=== PATIENT | male | born 1955 | race Caucasian/White ===

== ENCOUNTER → 2018-06-29 | Outpatient (CLI) | payer OTHER | LOC: BMCIMAGING 10:58 | PROVIDERS: ATTEND Emergency Medicine | DX: M54.2 Cervicalgia (principal); M48.02 Spinal stenosis, cervical region ==

== ENCOUNTER → 2018-07-15 | Outpatient (CLI) | payer OTHER | DX: R20.2 Paresthesia of skin (principal); M48.02 Spinal stenosis, cervical region ==

== ENCOUNTER → 2018-08-06 | Outpatient (CLI) | payer OTHER | LOC: FIMAGING 05:57 | PROVIDERS: ATTEND Neurological Surgery | DX: M50.11 Cervical disc disorder with radiculopathy, high cervical region (principal); M50.13 Cervical disc disorder with radiculopathy, cervicothoracic region ==

== ENCOUNTER 2018-08-20 05:07 | Day surgery (SDC) | payer OTHER ==
[2018-08-20] MEDS ORDERED: LR 1,000 ML IV ONE (05:41)
[2018-08-20] MEDS ORDERED: LIDOCAINE 1% 2 ML INJ ID PRN (05:41)
[2018-08-20] MEDS ORDERED: ceFAZolin 2 GM/DEXTROSE 100 ML IV ONE (06:47)
[2018-08-20] MEDS ORDERED: ACETAMINOPHEN 500 MG TAB PO ONE (06:47)
[2018-08-20] MEDS ORDERED: MIDAZOLAM 2 MG/2 ML VIAL IVP ONE (06:51)
--- NOTE | 2018-08-20 06:51 | PDANEPAE ---
ANE History of Present Illness here for cerv athroplasty ANE Past Medical History - Cardiovascular History Hx Hypertension: Yes Hx Arrhythmias: No Hx Chest Pain: No Hx Coronary Artery / Peripheral Vascular Disease: No Hx CHF / Valvular Disease: No Hx Palpitations: No - Pulmonary History Hx COPD: No Hx Asthma/Reactive Airway Disease: No Hx Recent Upper Respiratory Infection: No Hx Oxygen in Use at Home: No Hx Sleep Apnea: No Sleep Apnea Screening Result - Last Documented: Positive Pulmonary History Comment: SANDEEP triggers - Neurologic History Hx Cerebrovascular Accident: No Hx Seizures: No Hx Dementia: No Neurologic History Comment: having c-spine surgery for numbness in right index finger, neck pain - Endocrine History Hx Diabetes: No - Renal History Hx Renal Disorders: No - Liver History Hx Hepatic Disorders: No - Neurological & Psychiatric Hx Hx Neurological and Psychiatric Disorders: Yes Neurological / Psychiatric History Comment: depression - Cancer History Hx Cancer: No - Congenital Disorder History Hx Congenital Disorders: No - GI History Hx Gastrointestinal Disorders: No - Other Health History Other Health History: wears glasses - Chronic Pain History Chronic Pain: No - Surgical History Prior Surgeries: tendon repair rightindex finger. 4 different surgeries on right fingers. cholecystectomy. tonsillectomy as a child ANE Review of Systems Review of systems is: negative Review of Systems: - Exercise capacity Exercise capacity: >=4 METS METS (RN): 4 METS ANE Patient History - Allergies Allergies/Adverse Reactions: No Known Allergies Allergy (Verified 08/06/18 15:45) - Home Medications Home medications: home medication list seen and reviewed Home Medications: Adult One Daily Multivit Tab 08/06/18 [Last Taken 08/13/18] Fish Oil Gregory-3 Softgel 08/06/18 [Last Taken 08/13/18] Glucosamine Chondroitin Caplet 08/06/18 [Last Taken 08/13/18] Lisinopril 08/06/18 [Last Taken 08/19/18 12:00] Sertraline HCl 08/06/18 [Last Taken 08/19/18 12:00] Vitamin B-12 08/06/18 [Last Taken 08/13/18] - NPO status NPO Status: no food or drink >8 hours NPO Since - Liquids (Date): 08/19/18 NPO Since - Liquids (Time): 04:25 NPO Since - Solids (Date): 08/19/18 NPO Since - Solids (Time): 18:30 - Anes Hx Anes Hx: no prior problems - Smoking Hx Smoking Status: Former smoker - Family Anes Hx Family Hx Anesthesia Complications: none ANE Labs/Vital Signs - Vital Signs Vital Signs: reviewed preoperatively; see RN documention for details Blood Pressure: 135/92 Heart Rate: 65 Respiratory Rate: 18 O2 Sat (%): 96 Height: 172.72 cm Weight: 79.379 kg ANE Physical Exam - Airway Neck exam: FROM Mallampati Score: Class 2 - Pulmonary Pulmonary: no respiratory distress - Cardiovascular Cardiovascular: regular rate and rhythym - ASA Status ASA Status: II ANE Anesthesia Plan Anesthesia Plan: general endotracheal anesthesia
[2018-08-20] MEDS ORDERED: NS 500 ML IV PRN (06:52)
[2018-08-20] MEDS ORDERED: HYDROCODONE/APAP 5/325 TAB PO PRN (06:52)
[2018-08-20] MEDS ORDERED: ONDANSETRON 4 MG/2 ML VIAL IVP PRN ×2 (06:52→09:53)
[2018-08-20] MEDS ORDERED: NALOXONE HCL 0.4 MG/ML INJ IVP PRN (06:52)
[2018-08-20] MEDS ORDERED: ALBUTEROL 3 ML DEYVIAL IH PRN (06:52)
[2018-08-20] MEDS ORDERED: HYDROmorphONE/DILAUDID 1 MG/ML INJ IVP PRN (06:52)
[2018-08-20] MEDS ORDERED: oxyCODONE IR 5 MG TAB PO PRN ×2 (06:52→09:56)
[2018-08-20] MEDS ORDERED: DEXAMETHASONE 4 MG/ML VIAL IVP PRN (06:52)
[2018-08-20] MEDS ORDERED: CHLORHEXIDINE GLUC HIBICLENS 118 ML BTL TP ONE (06:57)
[2018-08-20] MEDS ORDERED: BACITRACIN 50,000 UNITS/10 ML SYR IRR ONE (06:57)
[2018-08-20] MEDS ORDERED: THROMBIN (BOVINE) 20,000 UNIT VIAL TP ONE (06:57)
[2018-08-20] MEDS ORDERED: fentaNYL 100 MCG/2 ML INJ ONE ×3 (06:58→10:05)
--- NOTE | 2018-08-20 06:58 | PDHPUP ---
History & Physical Update H&P update statement: This history and physical update is based on an assessment of the patient which was completed after admission or registration (within 24 hours), but prior to the surgery/procedure. H&P update: H&P reviewed & patient examined, no change in patient's condition since H&P completed
[2018-08-20] MEDS ORDERED: PROPOFOL/EMULSION 500 MG/50 ML BOTTLE IV ONE (07:00)
[2018-08-20] MEDS ORDERED: ROCURONIUM 50 MG/5 ML VIAL ONE (07:00)
[2018-08-20] MEDS ORDERED: AVITENE POWDER 1 GM JAR TP ONE (07:11)
[2018-08-20] MEDS ORDERED: DEXAMETHASONE 4 MG/ML VIAL ONE (07:34)
[2018-08-20] MEDS ORDERED: ONDANSETRON 4 MG/2 ML VIAL ONE (07:34)
[2018-08-20] MEDS ORDERED: BUPIVACAINE/EPI 0.5% 30 ML SDV ONE (07:37)
[2018-08-20] MEDS ORDERED: PROPOFOL 200 MG/20 ML VIAL ONE (08:56)
[2018-08-20] MEDS ORDERED: ONDANSETRON DISINTEGRATING 4 MG TAB PO PRN (09:53)
[2018-08-20] MEDS ORDERED: KETOROLAC 30 MG/1 ML SDV IVP ONE (09:54)
[2018-08-20] MEDS ORDERED: CYCLOBENZAPRINE 10 MG TAB PO PRN (09:55)
[2018-08-20] MEDS ORDERED: METHOCARBAMOL 1,000 MG in NS 50 ML IVP PRN (10:01)
[2018-08-20] MEDS: fentaNYL 100 MCG/2 ML INJ IVP PRN ×3 (10:06→10:34)
[2018-08-20] MEDS ORDERED: oxyCODONE IR 5 MG TAB ONE (10:46)
[2018-08-20] MEDS ORDERED: KETOROLAC 30 MG/1 ML SDV ONE (11:34)
[2018-08-20 13:58] VITALS: BP 136/93
--- NOTE | 2018-08-20 14:16 | POSTANESTH ---
Post Anesthetic Evaluation Cardiovascular Status: Normal, Stable Respiratory Status: Normal, Stable Level of Consciousness/Mental Status: Can Participate in Eval Pain Control: Adequate, Prn Tx Ordered Nausea/Vomiting Control: Adequate, Prn Tx Ordered Complications Possibly Related to Anesthesia: None Noted
--- NOTE | 2018-08-21 06:46 | GOP ---
DATE OF OPERATION: 08/20/2018 SURGEON: Ladarius Prado MD NEUROSURGEON: Ladarius Prado MD. RESEARCH ATTORNEY: RAJESH Mendez. PREOPERATIVE DIAGNOSIS: Acute soft disk herniation at C6-7 with right C7 radiculopathy. POSTOPERATIVE DIAGNOSIS: Acute soft disk herniation at C6-7 with right C7 radiculopathy. PROCEDURE PERFORMED: 1. C6-7 disk arthroplasty including complete diskectomy. 2. Use of the operative microscope. 3. Intraoperative neurophysiologic monitoring, including somatosensory-evoked potentials, motor-evok ed potentials, and electromyography. FINDINGS: SPECIMENS: There were no specimens. ESTIMATED BLOOD LOSS: 25 cc. INDICATIONS: Doyle Gifford is a 63-year-old man with acute right arm pain in a C7 distribution. He tried multiple conservative measures including physical therapy and steroid injections and antiinflam matories, which has been unsuccessful. We discuss the options of fusion versus disk arthroplasty and , given the normal motion on his x-rays and the fact that this is a soft disk herniation, I felt he w as appropriate for disk arthroplasty. He presents today electively for this procedure. DESCRIPTION OF PROCEDURE: After informed consent was obtained from the patient, the patient was brou ght to the operating room and was placed in supine position on the operating table. A formal time-ou t was performed, identifying the patient by name, medical record number, and date of . Preopera tive antibiotics were given. The endotracheal tube was placed and general endotracheal anesthesia wa s smoothly induced. The head was extended onto a headrest and a lateral radiograph confirmed the sit e of the incision. Baseline neuro monitoring potentials were normal. The neck was then prepped and draped in the normal sterile fashion. The skin incision was made using a 10 blade and the subcutaneo us tissue were dissected using monopolar electrocautery. The skin was undermined over the platysma, and the platysma was then opened in line with its fibers. The medial border of the sternocleidomasto id was dissected down toward the prevertebral fascia, which was opened. This allowed us to visualize the anterior surface of the spine and a disk space marker was placed in the nearest disk space confi rming the C6-7 interspace. At this point, the disk space was opened and the longus colli muscles wer e taken down laterally. Self-retaining retractors were placed and 16 mm Dale distraction pins were placed in the C6 and C7 vertebral bodies and the disk space was placed under light distraction. At this point, the operative microscope was brought on the field and the remainder of the procedure was performed under high-power magnification. First, a complete diskectomy was performed using curettes and Kerrison punches. Once we were to the back of the vertebral body, the high-speed drill was used to drill down the posterior osteophytes and the posterior longitudinal ligament was opened. This was opened out into the left-sided foramen, an d, as we coursed to the right-sided foramen, a large extruded disk fragment was removed from the subl igamentous space decompressing the C7 nerve root. We followed this out into the foramen to be sure t hat the nerve root was completely decompressed and no further disk was seen. At this point, the disk space was irrigated using bacitracin irrigation. All bleeding was controlled using Gelfoam. The en dplates were then drilled in parallel and rasped using the insertion tools for the Prestige LP. This was then appropriately sized for the 7 x 16 mm Prestige LP device. Using the insertion tools, the r ails were cut into the endplates and the device was then inserted and its placement was checked using AP and lateral radiographs. The placement appeared to be excellent and the neuro monitoring potenti als remained stable. At this point, the wound was copiously irrigated using bacitracin irrigation. All bleeding was controlled using bipolar electrocautery. The wound was completely dry. The platysm a was then closed using interrupted 3-0 Vicryls. The deep dermis was closed using interrupted 3-0 Vi cryls, and the skin was closing using Dermabond. The patient was then awakened in the operating room where he was extubated and was transferred to the PACU in stable condition. There were no operative complications. I was scrubbed and present for the entire procedure. All sponge and needle counts w ere correct at the end of the case. FLUIDS AND URINE OUTPUT: Per the anesthesia record. DRAINS: There were no drains. /[id number]/MODL
== END 2018-08-20 14:25 | disposition home or self-care (01) ==
LOC: FSGY 05:07
PROVIDERS: ATTEND Neurological Surgery
DX: M50.123 Cervical disc disorder at C6-C7 level with radiculopathy (principal); I10 Essential (primary) hypertension
CPT/HCPCS: C1713; J0690; J1100; J1885; J2250; J2405; J2704; J2800; J3010